=== PATIENT | male | born 1995 | race African-American/Black ===

== ENCOUNTER 2025-05-25 11:03 | Emergency (ER) | payer OTHER ==
[2025-05-25 11:09] VITALS: BP 121/70; PULSE 64; RESP 19; TEMP 97.7; BMI 19.5
[2025-05-25] MEDS ORDERED: AMOX TR/POT CLAV 875MG/125MG TABLETS (FP) ONE (12:29)
[2025-05-25] MEDS: AMOX TR/POT CLAV 875MG/125MG TABLETS (FP) PO ONE (12:40)
== END 2025-05-25 12:45 | disposition home or self-care (01) ==
LOC: JER 11:03
DX: R22.0 Localized swelling, mass and lump, head (principal); K04.7 Periapical abscess without sinus; K08.89 Other specified disorders of teeth and supporting structures
CPT/HCPCS: 99283-25